=== PATIENT | female | born 1970 | race Hispanic/Latino ===

== ENCOUNTER 2018-03-08 06:03 | Emergency (ER) | payer OTHER ==
[2018-03-08] MEDS ORDERED: METOCLOPRAMIDE 10 MG/2 ML VIAL ONE (06:43)
[2018-03-08] MEDS ORDERED: METHYLPREDNISOLONE SOD SUCC 40MG/ML 1ML ONE (06:44)
[2018-03-08] MEDS ORDERED: SODIUM CHLORIDE 0.9% 1000ML 1,000 ML IV ONE (06:44)
[2018-03-08] MEDS ORDERED: DiphenhydrAMINE HCL 50 MG/ML VIAL ONE (06:44)
[2018-03-08] MEDS ORDERED: KETOROLAC TROMETHAMINE 30MG/ML ONE (06:44)
== END 2018-03-08 07:46 | disposition home or self-care (01) ==
LOC: EDH 06:03
DX: G43.019 Migraine without aura, intractable, without status migrainosus (principal); E07.9 Disorder of thyroid, unspecified
CPT/HCPCS: 96361; 96374; 96375; 99284; J1200; J1885; J2765; J2920; J7030